=== PATIENT | female | born 1990 | race Caucasian/White ===

== ENCOUNTER 2018-06-10 01:24 | Observation (INO) ==
[2018-06-10] MEDS ORDERED: Sod Chloride 0.9% Inj 1,000 ML IV.SIG ONE (02:12)
[2018-06-10 03:05] LABS: Baso % (Auto) 0.4 % (0.0-2.0); Eos # (Auto) 0.3 th/mm3 (0.0-0.4); Eos % (Auto) 3.9 % (0.0-4.0); Hematocrit 35.7 % (35.0-46.0); Hemoglobin 11.6 gm/dL (11.6-15.3); Lymph # (Auto) 1.8 th/mm3 (1.0-4.8); Lymph % (Auto) 21.2 % (9.0-44.0); Mean Corpuscular HGB Conc 32.4 % (32.0-36.0); Mean Corpuscular Hemoglobin 25.8 pg (27.0-34.0); Mean Corpuscular Volume 79.4 fL (80.0-100.0); Mean Platelet Volume 7.9 fL (7.0-11.0); Mono # (Auto) 0.4 th/mm3 (0.0-0.9); Mono % (Auto) 4.5 % (0.0-8.0); Neut # (Auto) 5.9 th/mm3 (1.8-7.7); Platelet Count 197 th/mm3 (150-450); Red Blood Count 4.49 mil/mm3 (4.00-5.30); Red Cell Distribution Width 13.9 % (11.6-17.2); White Blood Count 8.4 th/mm3 (4.0-11.0)
[2018-06-10 03:13] LABS: Chloride 107 meq/L (98-107); Potassium 3.9 meq/L (3.5-5.1); Sodium 142 meq/L (136-145)
[2018-06-10 03:16] LABS: Albumin 3.2 g/dL (3.4-5.0); Anion Gap 10 meq/L (5-15); Calcium 8.5 mg/dL (8.5-10.1); Carbon Dioxide 25.4 meq/L (21.0-32.0); Glucose,Random 104 mg/dL (74-106); Lipase 248 U/L (73-393)
[2018-06-10 03:17] LABS: Blood Urea Nitrogen 15 mg/dL (7-18)
[2018-06-10 03:19] LABS: Alanine Aminotransferase 47 U/L (10-53); Aspartate Aminotransferase 22 U/L (15-37); Glomerular Filtration Rate 75 mL/min (>89)
[2018-06-10 03:21] LABS: Total Protein 6.7 g/dL (6.4-8.2)
--- NOTE | 2018-06-10 03:21 | ED ---
HPI General Chief Complaint: Abdominal Pain Stated Complaint: abd pain Time Seen by Provider: 06/10/18 03:17 Source: patient Mode of arrival: ambulatory Limitations: no limitations History of Present Illness HPI narrative: 27-year-old female 4 weeks with epigastric and right upper quadrant pain associated with nausea. This is her third episode in the past few weeks. Patient denies precipitating events such as fatty meal. No nausea no vomiting no fever or chills. Patient is formula feeding not breast- feeding her . Patient has not been evaluated for her abdominal pain. No prior history of gallbladder disease gallstones peptic ulcer disease gastritis or pancreatitis. Patient patient reports pain radiates into her back and is worsened by resting supine. Patient is unable to identify exacerbating or alleviating factors otherwise but has taken ibuprofen with minimal relief. Patient denies any chronic medical conditions. Patient is sexually active. MD complaint: Reports abdominal pain Onset (ago): day(s) Pain Consistency: intermittent and colicky Location: Reports RUQ Severity: moderate Quality: Reports cramping, aching and fullness Radiation: Reports RUQ, epigastric and back Migration to: Reports RUQ and epigastric Relieving factors: nothing Exacerbating factors: nothing Associated symptoms: Reports denies other symptoms Treatments prior to arrival: Reports NSAIDs Related Data Hx Last Menstrual Period: about 11 months ago Patient : No Home Medications Medication Instructions Recorded Confirmed No Known Home Medications 06/10/18 06/10/18 Allergies Allergy/AdvReac Type Severity Reaction Status Date / Time No Known Allergies Allergy Verified 06/10/18 03:07 Review of Systems ROS: all other systems reviewed are negative PMFSH Social History Social History Substance History: No History of Abuse Second Hand Smoke Exposure: No Smoking Status: Current every day smoker Tobacco Type: Cigarettes How Often Do You Have a Drink Containing Alcohol: Never Recent Travel in [facility] within the Last 8 Weeks: No Recent Out of Country Travel within the Last 8 Weeks: No Immunization History Tetanus Immunization: <5 Years Exam Narrative Exam Narrative: GENERAL: Well-nourished, well-developed patient. SKIN: Focused skin assessment warm/dry. HEAD: Normocephalic. EYES: No scleral icterus. No injection or drainage. NECK: Supple, trachea midline. No JVD or lymphadenopathy. CARDIOVASCULAR: Regular rate and rhythm without murmurs, gallops, or rubs. RESPIRATORY: Breath sounds equal bilaterally. No accessory muscle use. GASTROINTESTINAL: Abdomen soft, reproducible right upper quadrant epigastric tenderness to palpation with voluntary guarding no rebound positive clinical Hudson sign, nondistended. MUSCULOSKELETAL: No cyanosis, or edema. BACK: Nontender without obvious deformity. No CVA tenderness. Course Initial Documented Vital Signs Temperature 97.6 F 06/10/18 01:30 Pulse Rate 63 06/10/18 01:30 Respiratory Rate 16 06/10/18 01:30 Blood Pressure 122/81 06/10/18 01:30 Pulse Oximetry 99 06/10/18 01:30 Last Documented Vital Signs Temperature 97.6 F 06/10/18 01:30 Pulse Rate 63 06/10/18 01:30 Respiratory Rate 16 06/10/18 01:30 Blood Pressure 122/81 06/10/18 01:30 Pulse Oximetry 99 06/10/18 01:30 Medical Decision Making MDM Narrative Medical decision making narrative: 27-year-old female with right upper quadrant abdominal pain 4 weeks no prior history of gallbladder disease positive clinical Hudson sign Lab values wnl hcg negative; UA pending At 5:40 AM patient is approved stating that pain is diminishing aware CT abdomen pelvis is pending CT abdomen pelvis per reading radiologist is concerning for developing acute cholecystitis with distended gallbladder gallstone and scant pericholecystic fluid total white cell count is in normal range patient given first dose of IV antibiotics in the emergency department department patient will be kept n.p.o. additional IV fluids administered and call placed to medicine service anticipate will need general surgery consult. Medical Screen Exam Complete: Yes Emergency Medical Condition: Yes Differential Diagnosis Differential Diagnosis: Biliary colic, cholecystitis, pancreatitis, peptic ulcer disease, gastritis, esophageal spasm, UTI, ; also to consider pneumonia, PE Medical Records Medical records reviewed: Yes I reviewed the patient's medical records. Lab Data Lab results reviewed: Yes I reviewed the patient's lab results. Result diagrams: 06/10/18 03:01 06/10/18 03:01 POC Results POC Urine Results Negative Lab Results 06/10/18 06/10/18 06/10/18 Range/Units 03:01 03:01 04:00 CBC w Diff Auto diff final WBC 8.4 (4.0-11.0) th/mm3 RBC 4.49 (4.00-5.30) mil/mm3 Hgb 11.6 (11.6-15.3) gm/dL Hct 35.7 (35.0-46.0) % MCV 79.4 L (80.0-100.0) fL MCH 25.8 L (27.0-34.0) pg MCHC 32.4 (32.0-36.0) % RDW 13.9 (11.6-17.2) % Plt Count 197 (150-450) th/mm3 MPV 7.9 (7.0-11.0) fL Neut % (Auto) 70.0 (16.0-70.0) % Lymph % (Auto) 21.2 (9.0-44.0) % [place] % (Auto) 4.5 (0.0-8.0) % Eos % (Auto) 3.9 (0.0-4.0) % Baso % (Auto) 0.4 (0.0-2.0) % Neut # (Auto) 5.9 (1.8-7.7) th/mm3 Lymph # (Auto) 1.8 (1.0-4.8) th/mm3 [place] # (Auto) 0.4 (0.0-0.9) th/mm3 Eos # (Auto) 0.3 (0.0-0.4) th/mm3 Baso # (Auto) 0.0 (0.0-0.2) th/mm3 WBC Differential . Differential Comment . Sodium 142 (136-145) meq/L Potassium 3.9 (3.5-5.1) meq/L Chloride 107 (98-107) meq/L Carbon Dioxide 25.4 (21.0-32.0) meq/L Anion Gap 10 (5-15) meq/L BUN 15 (7-18) mg/dL Creatinine 0.91 (0.50-1.00) mg/dL Estimated GFR 75 L (>89) mL/min Random Glucose 104 (74-106) mg/dL Calcium 8.5 (8.5-10.1) mg/dL Total Bilirubin 0.2 (0.2-1.0) mg/dL AST 22 (15-37) U/L ALT 47 (10-53) U/L Alkaline Phosphatase 101 (45-117) U/L Total Protein 6.7 (6.4-8.2) g/dL Albumin 3.2 L (3.4-5.0) g/dL Lipase 248 (73-393) U/L Urine Color Yellow (Yellw/Straw) Urine Clarity Clear (Clear) Urine pH 6.0 (5.0-8.5) Ur Specific [place] 1.025 (1.002-1.035) Urine Protein Negative (Neg-Trace) mg/dL Urine Glucose (UA) Negative (Negative) mg/dL Urine Ketones Negative (Negative) mg/dL Urine Occult Blood Negative (Negative) Urine Nitrate Negative (Negative) Urine Bilirubin Negative (Negative) Urine Urobilinogen 0.2 (Less than 2) mg/dL Ur Leukocyte Esterase Negative (Negative) Urine RBC 0-3 (0-3) /hpf Urine WBC 0-5 (0-5) /hpf Ur Squamous Epith Cells 6-10 H (0-5) /hpf Urine Bacteria Few H (None) /hpf Micro UA Comment Culture not ind Ur Microscopic Review Microscopic reviewed Urine Culture Comments Culture not ind Imaging Data Radiologist's impression: Abdomen/Pelvis CT 06/10/18 04:15 CONCLUSION: 1. Moderate gallbladder distention, cholelithiasis and trace pericholecystic fluid. Cannot exclude developing acute cholecystitis in the appropriate clinical setting. 2. Normal appendix. Discharge Plan Discharge Disposition Patient Disposition: 30 Still Patient Discharge Condition Condition: Stable Discharge Details Diagnosis: Abdominal pain, Cholecystitis Physicians Team ED Provider: Tri Buck Primary Care Provider: Primary Care Radha Guardado Attending Provider: Jesika Peter Status ED Status: Admitted Observation Patient
[2018-06-10 03:22] LABS: Alkaline Phosphatase 101 U/L (45-117)
[2018-06-10] MEDS ORDERED: Ketorolac Inj 30 MG/ML (IVP) Vial IV.PUSH ONE ×3 (04:03→13:32)
[2018-06-10 04:05] LABS: Bilirubin,Urine Negative (Negative); Clarity,Urine Clear (Clear); Color,Urine Yellow (Yellw/Straw); Glucose,Urine (UA) Negative (Negative); Leukocyte Esterase,Urine Negative (Negative); Nitrite,Urine Negative (Negative); Specific Gravity,Urine 1.025 (1.002-1.035); Urobilinogen,Urine 0.2 mg/dL (Less than 2)
[2018-06-10 04:09] LABS: Bacteria,Urine Few /hpf; RBC,Urine 0-3 /hpf (0-3); WBC,Urine 0-5 /hpf (0-5)
--- NOTE | 2018-06-10 05:41 | CT ---
EXAM DATE: 06/10/2018 4:26 AM EDT AGE/SEX: 27 years / Female INDICATIONS: bilateral epigastric pain post . CLINICAL DATA: This is the patient's initial encounter. Patient reports that signs and symptoms have been present for 3 days and indicates a pain score of 8/10. MEDICAL/SURGICAL HISTORY: None. None. ORAL CONTRAST: No oral contrast ingested. RADIATION DOSE: 14.26 CTDI (mGy) COMPARISON: No prior exams available for comparison. TECHNIQUE: Multiple contiguous axial images were obtained through the abdomen and pelvis following b olus infusion of 100 ml Omnipaque 350 (iohexol) nonionic water-soluble contrast as a single exam do se. No oral contrast ingested. Using automated exposure control and adjustment of the mA and/or kV a ccording to patient size, radiation dose was kept as low as reasonably achievable to obtain optimal d iagnostic quality images. DICOM format image data is available electronically for review and compari son. FINDINGS: LOWER LUNGS: The visualized lower lungs are clear. LIVER: The liver has a homogeneous density without space-occupying lesion. There is no dilation of t he biliary tree. Gallbladder is moderately distended with small gallstone near the fundus and trace p ericholecystic fluid. SPLEEN: Homogeneous density without enlargement. PANCREAS: Unremarkable without mass or calcification. KIDNEYS: Kidneys demonstrate symmetrical enhancement and are symmetrical in size without evidence fo r radiopaque renal calculi or hydronephrosis. ADRENAL GLANDS: Unremarkable. AORTA: Joyce-aneurysmal. BOWEL/MESENTERY: The bowel loops are grossly unremarkable. The cecum and sigmoid colon have a iva l configuration. Bowel loops are normal in caliber. No free fluid or drainable fluid collections. No free air. Normal appendix. ABDOMINAL WALL: Intact. RETROPERITONEUM: No evidence of adenopathy in the retrocrural, para-aortic, or deep pelvic regions. BLADDER: Contours are smooth. REPRODUCTIVE: Prominent endometrium. BONY STRUCTURES: Unremarkable. CONCLUSION: 1. Moderate gallbladder distention, cholelithiasis and trace pericholecystic fluid. Cannot exclude d eveloping acute cholecystitis in the appropriate clinical setting. 2. Normal appendix. Electronically signed by: Luis Goldberg MD 06/10/2018 5:40 AM EDT
[2018-06-10] MEDS ORDERED: Piperacil/Tazo 3.375 GM Premix 50 ML IV.SIG ONE (05:42)
[2018-06-10] MEDS ORDERED: Acetaminophen 325 MG Tablet PO PRN (05:54)
[2018-06-10] MEDS ORDERED: Bisacodyl 10 MG Supp RECTAL PRN (05:54)
[2018-06-10] MEDS ORDERED: Morphine Sulfate Inj 2 MG/ML Vial IV.PUSH PRN (05:59)
[2018-06-10] MEDS ORDERED: KCL 20 mEq/D5W/NaCl 0.9% Inj 1,000 ML IV.CONT SCH (06:00)
--- NOTE | 2018-06-10 07:37 | P.CONGS ---
[facility] - History History Provided By: Patient - Tobacco History Second Hand Smoke Exposure: Yes Tobacco Use In Past 30 Days: Yes Smoking Status: Current every day smoker Tobacco Type: Cigarettes - Alcohol History How Often Do You Have a Drink Containing Alcohol: Monthly or less - Substance Use History Substance History: No History of Abuse - Travel History Recent Travel in the [place] Within the Last 8 Weeks: No Recent Travel Out of the Country Within the Last 8 Weeks: No - Immunization History Tetanus Immunization: <5 Years Medications and Allergies Active Medications: Active Medications Acetaminophen (Tylenol) 650 mg PO Q4H PRN PRN Reason: Temp > 100.4 Bisacodyl (Dulcolax Supp) 10 mg RECTAL DAILY PRN PRN Reason: SEVERE CONSITIPATION Potassium Chloride/Dextrose/Sod Cl (D5w/Ns + Kcl 20 Meq Inj) 1,000 mls @ 100 mls/hr IV.CONT .Q10H IZAIAH Sodium Chloride (Ns Inj) 1,000 mls @ 100 mls/hr IV.CONT .Q10H IZAIAH Piperacillin/Tazobactam/Dextrose (Zosyn 3.375 Gm Premix) 50 mls @ 100 mls/hr IV.SIG Q6H IZAIAH Morphine Sulfate (Morphine Inj) 2 mg IV.PUSH Q3H PRN PRN Reason: pain > 4 Ondansetron HCl (Zofran Inj) 4 mg IV.PUSH Q6H PRN PRN Reason: NAUSEA OR VOMITING Sennosides (Senokot) 17.2 mg PO Q12H PRN PRN Reason: Moderate Constipation Sodium Chloride (Ns Flush) 2 ml IV.FLUSH PRN PRN PRN Reason: FLUSH AFTER USING IV ACCESS Allergies Allergy/AdvReac Type Severity Reaction Status Date / Time No Known Allergies Allergy Verified 06/10/18 03:07 Home Medications Medication Instructions Recorded Confirmed Type No Known Home Medications 06/10/18 06/10/18 History Exam Vital signs: Vital Signs 06/10/18 01:30 06/10/18 06:41 Temperature 97.6 F Pulse Rate 63 61 Respiratory Rate 16 18 Blood Pressure 122/81 118/71 Pulse Oximetry 99 99 Intake & Output 06/09/18 06/10/18 06/10/18 18:59 06:59 18:59 Intake Total 1000 / 1000 50 / 50 Balance 1000 / 1000 50 / 50 Weight 86.7 kg Intake: IV 1000 / 1000 50 / 50 Zosyn 3.375 GM Premix 50 ML @ 50 / 50 100 mls/hr IV.SIG ONCE ONE Rx#: [id number] NS Inj 1,000 ML @ Wide Open IV. 1000 / 1000 SIG BOLUS ONE Rx#:[id number] Other: Date of Last Bowel Movement 06/09/18 Results - Labs 06/10/18 03:01 06/10/18 03:01 Laboratory Results - last 24 hr 06/10/18 06/10/18 06/10/18 03:01 03:01 04:00 CBC w Diff Auto diff final WBC 8.4 RBC 4.49 Hgb 11.6 Hct 35.7 MCV 79.4 L MCH 25.8 L MCHC 32.4 RDW 13.9 Plt Count 197 MPV 7.9 Neut % (Auto) 70.0 Lymph % (Auto) 21.2 [place] % (Auto) 4.5 Eos % (Auto) 3.9 Baso % (Auto) 0.4 Neut # (Auto) 5.9 Lymph # (Auto) 1.8 [place] # (Auto) 0.4 Eos # (Auto) 0.3 Baso # (Auto) 0.0 WBC Differential . Differential Comment . Sodium 142 Potassium 3.9 Chloride 107 Carbon Dioxide 25.4 Anion Gap 10 BUN 15 Creatinine 0.91 Estimated GFR 75 L Random Glucose 104 Calcium 8.5 Total Bilirubin 0.2 AST 22 ALT 47 Alkaline Phosphatase 101 Total Protein 6.7 Albumin 3.2 L Lipase 248 Urine Color Yellow Urine Clarity Clear Urine pH 6.0 Ur Specific [place] 1.025 Urine Protein Negative Urine Glucose (UA) Negative Urine Ketones Negative Urine Occult Blood Negative Urine Nitrate Negative Urine Bilirubin Negative Urine Urobilinogen 0.2 Ur Leukocyte Esterase Negative Urine RBC 0-3 Urine WBC 0-5 Ur Squamous Epith Cells 6-10 H Urine Bacteria Few H Micro UA Comment Culture not ind Ur Microscopic Review Microscopic reviewed Urine Culture Comments Culture not ind - Imaging Imaging: ITS Impressions Abdomen/Pelvis CT 06/10/18 04:15 CONCLUSION: 1. Moderate gallbladder distention, cholelithiasis and trace pericholecystic fluid. Cannot exclude developing acute cholecystitis in the appropriate clinical setting. 2. Normal appendix.
--- NOTE | 2018-06-10 09:29 | P.CONGS ---
[facility] Gen Surgery Consult Note Consult date: 06/10/18 Reason for consult: abdominal pain Requesting physician: Courtney Bocanegra Narrative: This is a 27 year old female who is 4 weeks who presented to the ED with complaints of acute onset of abdominal pain yesterday. She reports she had a similar episode of abdominal pain about 2 weeks ago but subsided on its own. The patient reports no associated nausea or vomiting. She is not . A CT abdomen/pelvis was obtained which shows a moderately distended gallbladder, cholelithiasis and trace pericholecystic fluid. Her WBC is normal. Her liver enzymes are normal. A General Surgery consultation has been requested for evaluation of laparoscopic cholecystectomy. Review of Systems All other systems reviewed negative except as stated in [facility] - History History Provided By: Patient - Medical History Medical History: Medical History (Last Reviewed 06/15/18 @ 10:45 by Jose Lynne MD) No significant past medical history No significant past surgical history - Family History Family History: Family History (Last Updated 06/15/18 @ 10:44 by Jose Lynne MD) Father Osteoarthritis - Social History I have reviewed the patient's Social History: Yes - Tobacco History Second Hand Smoke Exposure: Yes Tobacco Use In Past 30 Days: Yes Smoking Status: Current every day smoker Tobacco Type: Cigarettes - Alcohol History How Often Do You Have a Drink Containing Alcohol: Monthly or less - Substance Use History Substance History: No History of Abuse - Travel History Recent Travel in the [place] Within the Last 8 Weeks: No Recent Travel Out of the Country Within the Last 8 Weeks: No - Immunization History Tetanus Immunization: <5 Years Medications and Allergies Allergies Allergy/AdvReac Type Severity Reaction Status Date / Time No Known Allergies Allergy Verified 06/10/18 03:07 Active Medications: Active Medications Acetaminophen (Tylenol) 650 mg PO Q4H PRN PRN Reason: Temp > 100.4 Bisacodyl (Dulcolax Supp) 10 mg RECTAL DAILY PRN PRN Reason: SEVERE CONSITIPATION Potassium Chloride/Dextrose/Sod Cl (D5w/Ns + Kcl 20 Meq Inj) 1,000 mls @ 100 mls/hr IV.CONT .Q10H IZAIAH Last Admin: 06/10/18 08:46 Dose: 100 mls/hr Sodium Chloride (Ns Inj) 1,000 mls @ 100 mls/hr IV.CONT .Q10H IZAIAH Piperacillin/Tazobactam/Dextrose (Zosyn 3.375 Gm Premix) 50 mls @ 100 mls/hr IV.SIG Q6H IZAIAH Morphine Sulfate (Morphine Inj) 2 mg IV.PUSH Q3H PRN PRN Reason: pain > 4 Ondansetron HCl (Zofran Inj) 4 mg IV.PUSH Q6H PRN PRN Reason: NAUSEA OR VOMITING Sennosides (Senokot) 17.2 mg PO Q12H PRN PRN Reason: Moderate Constipation Sodium Chloride (Ns Flush) 2 ml IV.FLUSH PRN PRN PRN Reason: FLUSH AFTER USING IV ACCESS Exam Vital signs: Vital Signs 06/10/18 01:30 06/10/18 06:41 Temperature 97.6 F Pulse Rate 63 61 Respiratory Rate 16 18 Blood Pressure 122/81 118/71 Pulse Oximetry 99 99 Intake & Output 06/09/18 06/10/18 06/10/18 18:59 06:59 18:59 Intake Total 1000 / 1000 50 / 50 Balance 1000 / 1000 50 / 50 Weight 86.7 kg Intake: IV 1000 / 1000 50 / 50 Zosyn 3.375 GM Premix 50 ML @ 50 / 50 100 mls/hr IV.SIG ONCE ONE Rx#: [id number] NS Inj 1,000 ML @ Wide Open IV. 1000 / 1000 SIG BOLUS ONE Rx#:[id number] Other: Date of Last Bowel Movement 06/09/18 Narrative: GENERAL: Pleasant 27 year old female resting in bed in no acute distress. SKIN: Warm and dry. HEAD: Atraumatic. Normocephalic. EYES: Pupils equal and round. No scleral icterus. No injection or drainage. ENT: No nasal bleeding or discharge. Mucous membranes pink and moist. NECK: Trachea midline. CARDIOVASCULAR: Regular rate and rhythm. RESPIRATORY: No accessory muscle use. Clear to auscultation. Breath sounds equal bilaterally. GASTROINTESTINAL: Abdomen soft, nondistended. RUQ tenderness with palpation. MUSCULOSKELETAL: Extremities without clubbing, cyanosis, or edema. No obvious deformities. NEUROLOGICAL: Awake and alert. No obvious cranial nerve deficits. Motor grossly within normal limits. Five out of 5 muscle strength in the arms and legs. Normal speech. PSYCHIATRIC: Appropriate mood and affect; insight and judgment normal. - Constitutional no acute distress Results - Labs 06/11/18 06:20 06/11/18 06:20 Laboratory Results CBC w Diff Auto diff final 06/10/18 03:01 WBC 8.4 th/mm3 (4.0-11.0) 06/10/18 03:01 RBC 4.49 mil/mm3 (4.00-5.30) 06/10/18 03:01 Hgb 11.6 gm/dL (11.6-15.3) 06/10/18 03:01 Hct 35.7 % (35.0-46.0) 06/10/18 03:01 MCV 79.4 fL (80.0-100.0) L 06/10/18 03:01 MCH 25.8 pg (27.0-34.0) L 06/10/18 03:01 MCHC 32.4 % (32.0-36.0) 06/10/18 03:01 RDW 13.9 % (11.6-17.2) 06/10/18 03:01 Plt Count 197 th/mm3 (150-450) 06/10/18 03:01 MPV 7.9 fL (7.0-11.0) 06/10/18 03:01 Neut % (Auto) 70.0 % (16.0-70.0) 06/10/18 03:01 Lymph % (Auto) 21.2 % (9.0-44.0) 06/10/18 03:01 [place] % (Auto) 4.5 % (0.0-8.0) 06/10/18 03:01 Eos % (Auto) 3.9 % (0.0-4.0) 06/10/18 03:01 Baso % (Auto) 0.4 % (0.0-2.0) 06/10/18 03:01 Neut # (Auto) 5.9 th/mm3 (1.8-7.7) 06/10/18 03:01 Lymph # (Auto) 1.8 th/mm3 (1.0-4.8) 06/10/18 03:01 [place] # (Auto) 0.4 th/mm3 (0.0-0.9) 06/10/18 03:01 Eos # (Auto) 0.3 th/mm3 (0.0-0.4) 06/10/18 03:01 Baso # (Auto) 0.0 th/mm3 (0.0-0.2) 06/10/18 03:01 WBC Differential . 06/10/18 03:01 Differential Comment . 06/10/18 03:01 Sodium 142 meq/L (136-145) 06/10/18 03:01 Potassium 3.9 meq/L (3.5-5.1) 06/10/18 03:01 Chloride 107 meq/L (98-107) 06/10/18 03:01 Carbon Dioxide 25.4 meq/L (21.0-32.0) 06/10/18 03:01 Anion Gap 10 meq/L (5-15) 06/10/18 03:01 BUN 15 mg/dL (7-18) 06/10/18 03:01 Creatinine 0.91 mg/dL (0.50-1.00) 06/10/18 03:01 Estimated GFR 75 mL/min (>89) L 06/10/18 03:01 Random Glucose 104 mg/dL (74-106) 06/10/18 03:01 Calcium 8.5 mg/dL (8.5-10.1) 06/10/18 03:01 Total Bilirubin 0.2 mg/dL (0.2-1.0) 06/10/18 03:01 AST 22 U/L (15-37) 06/10/18 03:01 ALT 47 U/L (10-53) 06/10/18 03:01 Alkaline Phosphatase 101 U/L (45-117) 06/10/18 03:01 Total Protein 6.7 g/dL (6.4-8.2) 06/10/18 03:01 Albumin 3.2 g/dL (3.4-5.0) L 06/10/18 03:01 Lipase 248 U/L (73-393) 06/10/18 03:01 Urine Color Yellow (Yellw/Straw) 06/10/18 04:00 Urine Clarity Clear (Clear) 06/10/18 04:00 Urine pH 6.0 (5.0-8.5) 06/10/18 04:00 Ur Specific [place] 1.025 (1.002-1.035) 06/10/18 04:00 Urine Protein Negative mg/dL (Neg-Trace) 06/10/18 04:00 Urine Glucose (UA) Negative mg/dL (Negative) 06/10/18 04:00 Urine Ketones Negative mg/dL (Negative) 06/10/18 04:00 Urine Occult Blood Negative (Negative) 06/10/18 04:00 Urine Nitrate Negative (Negative) 06/10/18 04:00 Urine Bilirubin Negative (Negative) 06/10/18 04:00 Urine Urobilinogen 0.2 mg/dL (Less than 2) 06/10/18 04:00 Ur Leukocyte Esterase Negative (Negative) 06/10/18 04:00 Urine RBC 0-3 /hpf (0-3) 06/10/18 04:00 Urine WBC 0-5 /hpf (0-5) 06/10/18 04:00 Ur Squamous Epith Cells 6-10 /hpf (0-5) H 06/10/18 04:00 Urine Bacteria Few /hpf (None) H 06/10/18 04:00 Micro UA Comment Culture not ind 06/10/18 04:00 Ur Microscopic Review Microscopic reviewed 06/10/18 04:00 Urine Culture Comments Culture not ind 06/10/18 04:00 Impressions Abdomen/Pelvis CT 06/10/18 04:15 CONCLUSION: 1. Moderate gallbladder distention, cholelithiasis and trace pericholecystic fluid. Cannot exclude developing acute cholecystitis in the appropriate clinical setting. 2. Normal appendix. - Imaging Imaging: ITS Impressions Abdomen/Pelvis CT 06/10/18 04:15 CONCLUSION: 1. Moderate gallbladder distention, cholelithiasis and trace pericholecystic fluid. Cannot exclude developing acute cholecystitis in the appropriate clinical setting. 2. Normal appendix. CT scan - abdomen: image reviewed Assessment and Plan - Assessment (1) Cholecystitis Code(s): K81.9 - Cholecystitis, unspecified Status: Acute Plan: 27 year old female with recurrent RUQ tenderness -Plan for laparoscopic cholecystectomy today with Dr. Lynne -NPO -[facility] -Zosyn preop -Obtain consents -Procedure explained in detail including risks and benefits -All questions answered -Thank you for this consult; We will continue to follow - Plan Discussed Condition With: Dr. Maged Ferreira - Attending Attestation patient seen at bedside, I agree with above acute right upper quadrant pain several episodes CT think gallbladder wall, acute cholecystitis with stones plan for OR for lap nickie discussed procedure with patient The exam, history, and the medical decision-making described in the above note were completed with the assistance of the mid-level provider. I reviewed and agree with the findings presented. I attest that I had a [id number] encounter with the patient on the same day, and personally performed and documented my assessment and findings in the medical record.
[2018-06-10] MEDS: Sod Chloride 0.9% Inj 1,000 ML IV.CONT SCH ×2 (11:34→17:55)
[2018-06-10] MEDS ORDERED: fentaNYL Citrate Inj 250 MCG/5 ML Ampul ONE (12:14)
[2018-06-10] MEDS ORDERED: Metoprolol Tartrate 25 MG Tablet PO ONE (12:55)
[2018-06-10] MEDS ORDERED: Chlorhexidine Gluconate 2% 1 Pack (2 Cloths) TOPICAL ONE (12:55)
[2018-06-10] MEDS ORDERED: Sodium Chlor 0.9% Inj 500 ML IV.SIG SCH (13:00)
[2018-06-10] MEDS ORDERED: Bupivacaine/Epinephrine PF Inj 0.5% 30 ML Vial ONE (13:04)
[2018-06-10] MEDS: Piperacil/Tazo 3.375 GM Premix 50 ML IV.SIG SCH ×2 (13:10→17:56)
--- NOTE | 2018-06-10 13:15 | P.OP ---
- Preoperative Diagnosis (1) Cholecystitis - Postoperative Diagnosis (1) Cholecystitis Date of procedure: 06/10/18 Procedure: lap nickie Anesthesia: GETA Surgeon: Jose Lynne MD Estimated blood loss (mL): 5 Pathology: other (gallbladder) Operation and Findings: distended gallbladder
[2018-06-10] MEDS ORDERED: Neostigmine Inj 5 MG/5 ML Syringe IV.PUSH ONE (13:32)
[2018-06-10] MEDS ORDERED: Lidocaine PF 1% Inj 5 ML Syringe INFILTRATN ONE (13:32)
[2018-06-10] MEDS ORDERED: Morphine Inj 4 MG/ML Vial ONE (14:56)
--- NOTE | 2018-06-10 15:06 | MP ---
cc: Jose Lynne MD DATE OF OPERATION: 06/10/2018 DATE OF PROCEDURE: 06/10/2018. PREOPERATIVE DIAGNOSIS: Acute cholecystitis with cholelithiasis. POSTOPERATIVE DIAGNOSIS: Acute cholecystitis with cholelithiasis. PROCEDURE PERFORMED: Laparoscopic cholecystectomy. SURGEON: Dr. Jose Lynne. DOUBLING MACHINE OPERATOR: None. ANESTHESIA: GETA. FLUIDS: See anesthesia sheet. ESTIMATED BLOOD LOSS: 5 mL DRAINS: None. COMPLICATIONS: None. WOUND CLASSIFICATION: Clean/contaminated. FINDINGS: Inflamed acute gallbladder, minimal gallbladder stones; good hemostasis. SPECIMENS: Gallbladder. INDICATIONS: Patient is a 27-year-old female who presents recent with acute onset of abdominal pain. The patient states the pain is right upper quadrant; continuing to get worse and several episodes. She had further workup including CT scan with findings of gallstones and thickened gallbladder wall with pericholecystic fluid. Therefore, decision was made for laparoscopic cholecystectomy. DETAILS OF PROCEDURE: The patient was taken to the operating suite, placed in supine position. She was prepped and draped in usual sterile fashion after induction of general endotracheal anesthesia. Brief timeout done stating correct patient, procedure, surgical site. We were all in agreement with this. Attention first directed to the umbilicus where a stab-chely incision was done after injection of local anesthetic. A 5 mm Optiview was done, placed supraumbilically and entered the abdomen safely. A cursory inspection with no evidence of injury. Three other ports were placed, including one 12 mm epigastric port, followed by two 5 mm right subcostal ports. The patient was placed in reverse Trendelenburg, airplane to the left. The gallbladder fundus was grasped and retracted cephalad. Dissection of the cystic duct and cystic artery were done. This was done with the [place] and the electro Bovie cautery hook. A small little bleeder was clipped and 2 clips placed proximal on the cystic artery and 1 distal and then 2 placed proximal on the cystic duct and 1 distal. The gallbladder was taken off the gallbladder fossa with the hook electro Bovie cautery. Gallbladder was placed in the EndoCatch bag and removed from the abdomen. Hemostasis was obtained. The Ray-Gisele was used to assist in hemostasis and the pneumoperitoneum was removed. The ports were removed. Epigastric port fascia was closed with 0-Vicryl ur 6 Monocryl 4-0 was used at all skin incisions and subcuticular incision. Local anesthetic done to all incision sites. The patient tolerated the procedure well. There were intraoperative complications. All lap and instrument counts were correct at the end of the procedure. The patient was extubated and taken to the PACU. MD ZAIN Garcia/shannan/kathy , 02:17 PM , 02:28 PM RAOUL
[2018-06-10] MEDS ORDERED: HYDROmorphone PF Inj 0.5 MG/0.5 ML Syringe IV.PUSH PRN (16:10)
[2018-06-10] MEDS ORDERED: HYDROmorphone PF Inj 2 MG/ML Vial IV.PUSH ONE (16:15)
--- NOTE | 2018-06-10 17:30 | P.HPIM ---
History of Present Illness Primary Care Physician: No Primary Care Physician History of Present Illness: Ms. Ferreira is a 27-year-old female. She has no past medical history. She was admitted secondary to right upper quadrant pain. This was found to be related to cholecystitis. She had cholecystectomy performed this morning. She is doing well postop. No other complaints at this time. She is lethargic postop. - Diagnosis (1) Abdominal pain (2) Cholecystitis Review of Systems Constitutional: No fevers, no chills no night sweats, no fatigue, no weakness Eyes: No eye pain, no blurry vision, no loss of vision ENT: No sore throat, no ear pain, no rhinorrhea Cardiovascular: No chest pain, no tachycardia, no palpitations, no shortness of breath, no syncope Respiratory: No wheezing, no cough, no shortness of breath Gastrointestinal: abdominal pain, no black tarry stools, no bright red blood per rectum, no vomiting, no diarrhea Musculoskeletal: No joint pain, no muscle cramps, no stiffness Integumentary: No rash, no ulcers, no drainage Neurologic: No sensory loss, no loss of motor function, no dizziness Psychiatric: No behavioral changes, no hallucinations, no suicidal ideations PMFSH - History History Provided By: Patient - Medical History Medical History: Medical History (Last Updated 06/10/18 @ 09:26 by NIDA Montes) No significant past medical history No significant past surgical history - Family History Family History: Family History (Last Updated 06/10/18 @ 17:28 by Severiano Diaz MD) Other Osteoarthritis - Tobacco History Second Hand Smoke Exposure: Yes Tobacco Use In Past 30 Days: Yes Smoking Status: Current every day smoker Tobacco Type: Cigarettes - Alcohol History How Often Do You Have a Drink Containing Alcohol: Monthly or less - Substance Use History Substance History: No History of Abuse - Travel History Recent Travel in the [place] Within the Last 8 Weeks: No Recent Travel Out of the Country Within the Last 8 Weeks: No - Immunization History Tetanus Immunization: <5 Years Medications and Allergies Active Medications: Active Medications Acetaminophen (Tylenol) 650 mg PO Q4H PRN PRN Reason: Temp > 100.4 Bisacodyl (Dulcolax Supp) 10 mg RECTAL DAILY PRN PRN Reason: SEVERE CONSITIPATION Hydromorphone HCl (Dilaudid Pf Inj) 0.5 mg IV.PUSH Q4H PRN PRN Reason: BREAKTHROUGH PAIN Sodium Chloride (Ns Inj) 1,000 mls @ 100 mls/hr IV.CONT .Q10H IZAIAH Last Admin: 06/10/18 11:34 Dose: 100 mls/hr Piperacillin/Tazobactam/Dextrose (Zosyn 3.375 Gm Premix) 50 mls @ 100 mls/hr IV.SIG Q6H IZAIAH Last Infusion: 06/10/18 16:01 Dose: Infused Sodium Chloride (Ns Inj) 500 mls @ 30 mls/hr IV.SIG .Q10H IZAIAH Lactated Ringer's (Lr 1000 Ml Inj) 1,000 mls @ 30 mls/hr IV.SIG .Q24H IZAIAH Stop: 06/11/18 12:59 Last Infusion: 06/10/18 14:25 Dose: 30 mls/hr Miscellaneous Information ([facility] [place] [facility]) 0 each OTHER UNSCH PRN PRN Reason: SEE LABEL COMMENTS Stop: 06/11/18 16:22 Ondansetron HCl (Zofran Inj) 4 mg IV.PUSH Q6H PRN PRN Reason: NAUSEA OR VOMITING Oxycodone/Acetaminophen (Percocet 10/325 Mg) 1 tab PO Q4H PRN PRN Reason: Pain 7 to 10 Oxycodone/Acetaminophen (Percocet 5/325 Mg) 1 tab PO Q4H PRN PRN Reason: Pain 3 to 6 Sennosides (Senokot) 17.2 mg PO Q12H PRN PRN Reason: Moderate Constipation Sodium Chloride (Ns Flush) 2 ml IV.FLUSH PRN PRN PRN Reason: FLUSH AFTER USING IV ACCESS Allergies Allergy/AdvReac Type Severity Reaction Status Date / Time No Known Allergies Allergy Verified 06/10/18 03:07 Home Medications Medication Instructions Recorded Confirmed Type No Known Home Medications 06/10/18 06/10/18 History Exam Vital signs: Vital Signs 06/10/18 01:30 06/10/18 06:41 06/10/18 08:00 Temperature 97.6 F 97.0 F L Pulse Rate 63 61 50 L Respiratory Rate 16 18 16 Blood Pressure 122/81 118/71 105/63 Pulse Oximetry 99 99 99 06/10/18 12:00 06/10/18 12:28 06/10/18 14:30 Temperature 97.0 F L 97.8 F 98.8 F Pulse Rate 55 L 56 L 78 Respiratory Rate 20 16 16 Blood Pressure 118/65 118/72 140/79 Pulse Oximetry 95 97 99 06/10/18 14:45 06/10/18 15:00 06/10/18 15:15 Temperature Pulse Rate 72 60 57 L Respiratory Rate 16 16 14 Blood Pressure 125/81 127/76 123/73 Pulse Oximetry 94 L 94 L 95 06/10/18 15:40 06/10/18 16:00 Temperature 98.2 F 98.5 F Pulse Rate 61 57 L Respiratory Rate 16 20 Blood Pressure 119/67 113/62 Pulse Oximetry 97 96 Intake & Output 06/09/18 06/10/18 06/10/18 18:59 06:59 18:59 Intake Total 1000 / 1000 2682 / 2682 Output Total 525 / 525 Balance 1000 / 1000 2157 / 2157 Weight 86.7 kg Intake: IV 1000 / 1000 1282 / 1282 D5W/NS + KCL 20 mEq Inj 1,000 282 / 282 ML @ 100 mls/hr IV.CONT .Q10H IZAIAH Rx#:[id number] LR 1000 mL Inj 1,000 ML @ 30 900 / 900 mls/hr IV.SIG .Q24H IZAIAH Rx#: [id number] Zosyn 3.375 GM Premix 50 ML @ 100 / 100 100 mls/hr IV.SIG Q6H IZAIAH Rx#: [id number] NS Inj 1,000 ML @ Wide Open IV. 1000 / 1000 SIG BOLUS ONE Rx#:[id number] Oral 200 / 200 Anesthesia Amount 900 / 900 Other 300 / 300 Output: Urine 500 / 500 Estimated Blood Loss 25 / 25 Other: Date of Last Bowel Movement 06/09/18 06/09/18 Narrative: GENERAL: NAD, A&Ox3 HEAD: Normocephalic. NECK: Supple, trachea midline. No lymphadenopathy. EYES: No scleral icterus. No injection or drainage. CARDIOVASCULAR: Regular rate and rhythm without murmurs, gallops, or rubs. RESPIRATORY: Breath sounds equal bilaterally. No accessory muscle use. GASTROINTESTINAL: Abdomen soft, tender abdomen postop, no guarding, nondistended. MUSCULOSKELETAL: No cyanosis, or edema. SKIN: Warm and dry. NEURO: No focal neurological deficits. Results - Labs CBC & Chem 7: 06/10/18 03:01 06/10/18 03:01 Labs: Short CBC 06/10/18 Range/Units 03:01 WBC 8.4 (4.0-11.0) th/mm3 Hgb 11.6 (11.6-15.3) gm/dL Hct 35.7 (35.0-46.0) % Plt Count 197 (150-450) th/mm3 BMP 06/10/18 03:01 Sodium 142 Potassium 3.9 Chloride 107 Carbon Dioxide 25.4 BUN 15 Creatinine 0.91 Calcium 8.5 Liver Function 06/10/18 Range/Units 03:01 Total Bilirubin 0.2 (0.2-1.0) mg/dL AST 22 (15-37) U/L ALT 47 (10-53) U/L Alkaline Phosphatase 101 (45-117) U/L Albumin 3.2 L (3.4-5.0) g/dL Urine 06/10/18 Range/Units 04:00 Urine Color Yellow (Yellw/Straw) Urine Clarity Clear (Clear) Urine pH 6.0 (5.0-8.5) Ur Specific [place] 1.025 (1.002-1.035) Urine Protein Negative (Neg-Trace) mg/dL Urine Glucose (UA) Negative (Negative) mg/dL - Imaging Impressions Abdomen/Pelvis CT 06/10/18 04:15 CONCLUSION: 1. Moderate gallbladder distention, cholelithiasis and trace pericholecystic fluid. Cannot exclude developing acute cholecystitis in the appropriate clinical setting. 2. Normal appendix. Caprini VTE Risk Assessment Caprini VTE Risk Assessment: No/Low Risk (score <= 1) Caprini Risk Assessment Model: Point Value = 1 Point Value = 2 Point Value = 3 Point Value = 5 Age 41-60 Minor surgery BMI > 25 kg/m2 Swollen legs Varicose veins or History of unexplained or recurrent spontaneous Oral contraceptives or hormone replacement Sepsis (< 1 month) Serious lung disease, including pneumonia (< 1 month) Abnormal pulmonary function Acute myocardial infarction Congestive heart failure (< 1 month) History of inflammatory bowel disease Medical patient at bed rest Age 61-74 Arthroscopic surgery Major open surgery (> 45 min) Laparoscopic surgery (> 45 min) Malignancy Confined to bed (> 72 hours) Immobilizing plaster cast Central venous access Age >= 75 History of VTE Family history of VTE Factor V Leiden Prothrombin [id number] Lupus anticoagulant Anticardiolipin antibodies Elevated serum homocysteine Heparin-induced thrombocytopenia Other congenital or acquired thrombophilia Stroke (< 1 month) Elective arthroplasty Hip, pelvis, or leg fracture Acute spinal cord injury (< 1 month) Prophylaxis Regimen: Total Risk Factor Score Risk Level Prophylaxis Regimen 0-1 Low Early ambulation 2 Moderate Order ONE of the following: *Sequential Compression Device (SCD) *Heparin 5000 units SQ BID 3-4 Higher Order ONE of the following medications: *Heparin 5000 units SQ TID *Enoxaparin/Lovenox 40 mg SQ daily (WT < 150 kg, CrCl > 30 mL/min) *Enoxaparin/Lovenox 30 mg SQ daily (WT < 150 kg, CrCl > 10-29 mL/min) *Enoxaparin/Lovenox 30 mg SQ BID (WT < 150 kg, CrCl > 30 mL/min) AND/OR *Sequential Compression Device (SCD) 5 or more Highest Order ONE of the following medications: *Heparin 5000 units SQ TID (Preferred with Epidurals) *Enoxaparin/Lovenox 40 mg SQ daily (WT < 150 kg, CrCl > 30 mL/min) *Enoxaparin/Lovenox 30 mg SQ daily (WT < 150 kg, CrCl > 10-29 mL/min) *Enoxaparin/Lovenox 30 mg SQ BID (WT < 150 kg, CrCl > 30 mL/min) AND *Sequential Compression Device (SCD) Assessment and Plan - Assessment (1) Abdominal pain Code(s): R10.9 - Unspecified abdominal pain Status: Acute (2) Cholecystitis Code(s): K81.9 - Cholecystitis, unspecified Status: Acute - Plan 27-year-old female admitted secondary to acute cholecystitis Acute cholecystitis Status post cholecystectomy Surgeons following Continue pain management Continue IV hydration Resume diet once patient is more alert and has bowel sounds Possible discharge tomorrow DVT prophylaxis SCDs (1) Abdominal pain Qualifiers: Abdominal location: epigastric Qualified Code(s): R10.13 - Epigastric pain
[2018-06-10] MEDS: oxyCODONE/Acetaminophen 10/325 Tablet PO PRN (20:31)
--- NOTE | 2018-06-10 20:42 | P.PN ---
Subjective Interval history: NOT SEEN Physical Exam Vital signs: Vital Signs 06/10/18 01:30 06/10/18 06:41 06/10/18 08:00 Temperature 97.6 F 97.0 F L Pulse Rate 63 61 50 L Respiratory Rate 16 18 16 Blood Pressure 122/81 118/71 105/63 Pulse Oximetry 99 99 99 06/10/18 12:00 06/10/18 12:28 06/10/18 14:30 Temperature 97.0 F L 97.8 F 98.8 F Pulse Rate 55 L 56 L 78 Respiratory Rate 20 16 16 Blood Pressure 118/65 118/72 140/79 Pulse Oximetry 95 97 99 06/10/18 14:45 06/10/18 15:00 06/10/18 15:15 Temperature Pulse Rate 72 60 57 L Respiratory Rate 16 16 14 Blood Pressure 125/81 127/76 123/73 Pulse Oximetry 94 L 94 L 95 06/10/18 15:40 06/10/18 16:00 Temperature 98.2 F 98.5 F Pulse Rate 61 57 L Respiratory Rate 16 20 Blood Pressure 119/67 113/62 Pulse Oximetry 97 96 Intake & Output 06/10/18 06/10/18 06/11/18 06:59 18:59 06:59 Intake Total 1000 / 1000 3282 / 3282 Output Total 525 / 525 Balance 1000 / 1000 2757 / 2757 Weight 86.7 kg Intake: IV 1000 / 1000 1882 / 1882 D5W/NS + KCL 20 mEq Inj 1,000 282 / 282 ML @ 100 mls/hr IV.CONT .Q10H IZAIAH Rx#:[id number] NS Inj 1,000 ML @ 100 mls/hr IV 550 / 550 .CONT .Q10H IZAIAH Rx#:[id number] LR 1000 mL Inj 1,000 ML @ 30 900 / 900 mls/hr IV.SIG .Q24H IZAIAH Rx#: [id number] Zosyn 3.375 GM Premix 50 ML @ 150 / 150 100 mls/hr IV.SIG Q6H IZAIAH Rx#: [id number] NS Inj 1,000 ML @ Wide Open IV. 1000 / 1000 SIG BOLUS ONE Rx#:[id number] Oral 200 / 200 Anesthesia Amount 900 / 900 Other 300 / 300 Output: Urine 500 / 500 Estimated Blood Loss 25 / 25 Other: Date of Last Bowel Movement 06/09/18 06/09/18 Narrative: GENERAL: NAD, A&Ox3 HEAD: Normocephalic. NECK: Supple, trachea midline. No lymphadenopathy. EYES: No scleral icterus. No injection or drainage. CARDIOVASCULAR: Regular rate and rhythm without murmurs, gallops, or rubs. RESPIRATORY: Breath sounds equal bilaterally. No accessory muscle use. GASTROINTESTINAL: Abdomen soft, tender abdomen postop, no guarding, nondistended. MUSCULOSKELETAL: No cyanosis, or edema. SKIN: Warm and dry. NEURO: No focal neurological deficits. Results - Labs CBC & Chem 7: 06/10/18 03:01 06/10/18 03:01 Laboratory Results - last 24 hr 06/10/18 06/10/18 06/10/18 03:01 03:01 04:00 CBC w Diff Auto diff final WBC 8.4 RBC 4.49 Hgb 11.6 Hct 35.7 MCV 79.4 L MCH 25.8 L MCHC 32.4 RDW 13.9 Plt Count 197 MPV 7.9 Neut % (Auto) 70.0 Lymph % (Auto) 21.2 [place] % (Auto) 4.5 Eos % (Auto) 3.9 Baso % (Auto) 0.4 Neut # (Auto) 5.9 Lymph # (Auto) 1.8 [place] # (Auto) 0.4 Eos # (Auto) 0.3 Baso # (Auto) 0.0 WBC Differential . Differential Comment . PT INR Sodium 142 Potassium 3.9 Chloride 107 Carbon Dioxide 25.4 Anion Gap 10 BUN 15 Creatinine 0.91 Estimated GFR 75 L Random Glucose 104 Calcium 8.5 Total Bilirubin 0.2 AST 22 ALT 47 Alkaline Phosphatase 101 Total Protein 6.7 Albumin 3.2 L Lipase 248 Urine Color Yellow Urine Clarity Clear Urine pH 6.0 Ur Specific [place] 1.025 Urine Protein Negative Urine Glucose (UA) Negative Urine Ketones Negative Urine Occult Blood Negative Urine Nitrate Negative Urine Bilirubin Negative Urine Urobilinogen 0.2 Ur Leukocyte Esterase Negative Urine RBC 0-3 Urine WBC 0-5 Ur Squamous Epith Cells 6-10 H Urine Bacteria Few H Micro UA Comment Culture not ind Ur Microscopic Review Microscopic reviewed Urine Culture Comments Culture not ind 06/10/18 09:17 CBC w Diff WBC RBC Hgb Hct MCV MCH MCHC RDW Plt Count MPV Neut % (Auto) Lymph % (Auto) [place] % (Auto) Eos % (Auto) Baso % (Auto) Neut # (Auto) Lymph # (Auto) [place] # (Auto) Eos # (Auto) Baso # (Auto) WBC Differential Differential Comment PT 10.0 INR 1.0 Sodium Potassium Chloride Carbon Dioxide Anion Gap BUN Creatinine Estimated GFR Random Glucose Calcium Total Bilirubin AST ALT Alkaline Phosphatase Total Protein Albumin Lipase Urine Color Urine Clarity Urine pH Ur Specific [place] Urine Protein Urine Glucose (UA) Urine Ketones Urine Occult Blood Urine Nitrate Urine Bilirubin Urine Urobilinogen Ur Leukocyte Esterase Urine RBC Urine WBC Ur Squamous Epith Cells Urine Bacteria Micro UA Comment Ur Microscopic Review Urine Culture Comments - Imaging Impressions Abdomen/Pelvis CT 06/10/18 04:15 CONCLUSION: 1. Moderate gallbladder distention, cholelithiasis and trace pericholecystic fluid. Cannot exclude developing acute cholecystitis in the appropriate clinical setting. 2. Normal appendix. - Procedures Lap nickie Assessment and Plan - Assessment (1) Abdominal pain Code(s): R10.9 - Unspecified abdominal pain Status: Acute (2) Cholecystitis Code(s): K81.9 - Cholecystitis, unspecified Status: Acute - Plan 27-year-old female admitted secondary to acute cholecystitis Acute cholecystitis Status post cholecystectomy Surgeons following Continue pain management Continue IV hydration Resume diet once patient is more alert and has bowel sounds Possible discharge tomorrow DVT prophylaxis SCDs (1) Abdominal pain Qualifiers: Abdominal location: epigastric Qualified Code(s): R10.13 - Epigastric pain
[2018-06-10] MEDS: HYDROmorphone PF Inj 2 MG/ML Vial IV.PUSH PRN (22:26)
[2018-06-11] MEDS: Piperacil/Tazo 3.375 GM Premix 50 ML IV.SIG SCH ×2 (00:23→05:22)
[2018-06-11] MEDS: oxyCODONE/Acetaminophen 10/325 Tablet PO PRN ×3 (00:45→09:41)
[2018-06-11] MEDS: HYDROmorphone PF Inj 2 MG/ML Vial IV.PUSH PRN (03:40)
[2018-06-11 06:50] LABS: Baso % (Auto) 0.1 % (0.0-2.0); Eos % (Auto) 0.1 % (0.0-4.0); Hematocrit 36.7 % (35.0-46.0); Hemoglobin 12.1 gm/dL (11.6-15.3); Lymph # (Auto) 0.8 th/mm3 (1.0-4.8); Lymph % (Auto) 6.7 % (9.0-44.0); Mean Corpuscular Hemoglobin 26.5 pg (27.0-34.0); Mean Corpuscular Volume 80.4 fL (80.0-100.0); Mean Platelet Volume 8.1 fL (7.0-11.0); Mono # (Auto) 0.3 th/mm3 (0.0-0.9); Mono % (Auto) 2.8 % (0.0-8.0); Neut # (Auto) 10.5 th/mm3 (1.8-7.7); Neut % (Auto) 90.3 % (16.0-70.0); Platelet Count 234 th/mm3 (150-450); Red Blood Count 4.56 mil/mm3 (4.00-5.30); Red Cell Distribution Width 13.7 % (11.6-17.2); White Blood Count 11.6 th/mm3 (4.0-11.0)
[2018-06-11 07:11] LABS: Chloride 106 meq/L (98-107); Sodium 141 meq/L (136-145)
[2018-06-11 07:17] LABS: Albumin 3.2 g/dL (3.4-5.0); Anion Gap 10 meq/L (5-15); Blood Urea Nitrogen 8 mg/dL (7-18); Calcium 8.2 mg/dL (8.5-10.1); Carbon Dioxide 25.2 meq/L (21.0-32.0); Glucose,Random 126 mg/dL (74-106)
[2018-06-11] MEDS: Sod Chloride 0.9% Inj 1,000 ML IV.CONT SCH (07:35)
[2018-06-11 07:38] LABS: Alanine Aminotransferase 182 U/L (10-53); Alkaline Phosphatase 147 U/L (45-117); Aspartate Aminotransferase 106 U/L (15-37); Glomerular Filtration Rate 76 mL/min (>89); Total Protein 6.7 g/dL (6.4-8.2)
[2018-06-11] MEDS ORDERED: HYDROmorphone PF Inj 2 MG/ML Vial IV.PUSH ONE (08:00)
--- NOTE | 2018-06-11 08:06 | P.PNGS ---
Subjective Interval history: Resting in bed Wants to make sure her Latuda is restarted Physical Exam Vital signs: Vital Signs 06/10/18 12:00 06/10/18 12:28 06/10/18 14:30 Temperature 97.0 F L 97.8 F 98.8 F Pulse Rate 55 L 56 L 78 Respiratory Rate 20 16 16 Blood Pressure 118/65 118/72 140/79 Pulse Oximetry 95 97 99 06/10/18 14:45 06/10/18 15:00 06/10/18 15:15 Temperature Pulse Rate 72 60 57 L Respiratory Rate 16 16 14 Blood Pressure 125/81 127/76 123/73 Pulse Oximetry 94 L 94 L 95 06/10/18 15:40 06/10/18 16:00 06/10/18 20:00 Temperature 98.2 F 98.5 F 96.1 F L Pulse Rate 61 57 L 56 L Respiratory Rate 16 20 16 Blood Pressure 119/67 113/62 120/66 Pulse Oximetry 97 96 98 06/11/18 00:00 Temperature 97.6 F Pulse Rate 53 L Respiratory Rate 16 Blood Pressure 118/71 Pulse Oximetry 96 Intake & Output 06/10/18 06/11/18 06/11/18 18:59 06:59 18:59 Intake Total 3282 / 3282 2049 50 / 50 Output Total 525 / 525 Balance 2757 / 2757 2049 50 / 50 Weight 86.7 kg Intake: IV 1882 / 1882 1050 / 1050 50 / 50 D5W/NS + KCL 20 mEq Inj 1,000 282 / 282 ML @ 100 mls/hr IV.CONT .Q10H IZAIAH Rx#:[id number] NS Inj 1,000 ML @ 100 mls/hr IV 550 / 550 1000 / 1000 .CONT .Q10H IZAIAH Rx#:[id number] LR 1000 mL Inj 1,000 ML @ 30 900 / 900 0 / 0 mls/hr IV.SIG .Q24H IZAIAH Rx#: [id number] Zosyn 3.375 GM Premix 50 ML @ 150 / 150 50 / 50 50 / 50 100 mls/hr IV.SIG Q6H IZAIAH Rx#: [id number] Oral 200 / 200 1000 / 1000 Anesthesia Amount 900 / 900 Other 300 / 300 Output: Urine 500 / 500 Estimated Blood Loss 25 / 25 Other: # Voids 3 Date of Last Bowel Movement 06/09/18 Narrative: Alert and awake Abd: soft; minimally tender; umbilical site with some bloody drainage Results - Labs 06/11/18 06:20 06/11/18 06:20 Laboratory Results - last 24 hr 06/10/18 06/11/18 06/11/18 09:17 06:20 06:20 CBC w Diff Auto diff final WBC 11.6 H RBC 4.56 Hgb 12.1 Hct 36.7 MCV 80.4 MCH 26.5 L MCHC 33.0 RDW 13.7 Plt Count 234 MPV 8.1 Neut % (Auto) 90.3 H Lymph % (Auto) 6.7 L [place] % (Auto) 2.8 Eos % (Auto) 0.1 Baso % (Auto) 0.1 Neut # (Auto) 10.5 H Lymph # (Auto) 0.8 L [place] # (Auto) 0.3 Eos # (Auto) 0.0 Baso # (Auto) 0.0 WBC Differential . Differential Comment . PT 10.0 INR 1.0 Sodium 141 Potassium 4.0 Chloride 106 Carbon Dioxide 25.2 Anion Gap 10 BUN 8 Creatinine 0.90 Estimated GFR 76 L Random Glucose 126 H Calcium 8.2 L Total Bilirubin 0.4 AST 106 H ALT 182 H Alkaline Phosphatase 147 H Total Protein 6.7 Albumin 3.2 L - Imaging Imaging: ITS Impressions Abdomen/Pelvis CT 06/10/18 04:15 CONCLUSION: 1. Moderate gallbladder distention, cholelithiasis and trace pericholecystic fluid. Cannot exclude developing acute cholecystitis in the appropriate clinical setting. 2. Normal appendix. Assessment and Plan - Assessment (1) Cholecystitis Code(s): K81.9 - Cholecystitis, unspecified Status: Acute Plan: 27 year old female with recurrent RUQ tenderness -POD1 lap nickie -Pain controlled -Regular diet -Restart home meds per [facility] team - clear for DC -Follow up SaturdayJune 23 at 1:10PM - Attending Attestation patient seen at bedside doing well post operatively pain better labs increase slightly will recheck prior to office visit d/c planning today The exam, history, and the medical decision-making described in the above note were completed with the assistance of the mid-level provider. I reviewed and agree with the findings presented. I attest that I had a [id number] encounter with the patient on the same day, and personally performed and documented my assessment and findings in the medical record.
[2018-06-11 08:36] VITALS: BP 131/69; PULSE 50; TEMP 96.2; O2SAT 99
--- NOTE | 2018-06-11 08:53 | P.PN ---
Physical Exam Vital signs: Vital Signs 06/10/18 12:00 06/10/18 12:28 06/10/18 14:30 Temperature 97.0 F L 97.8 F 98.8 F Pulse Rate 55 L 56 L 78 Respiratory Rate 20 16 16 Blood Pressure 118/65 118/72 140/79 Pulse Oximetry 95 97 99 06/10/18 14:45 06/10/18 15:00 06/10/18 15:15 Temperature Pulse Rate 72 60 57 L Respiratory Rate 16 16 14 Blood Pressure 125/81 127/76 123/73 Pulse Oximetry 94 L 94 L 95 06/10/18 15:40 06/10/18 16:00 06/10/18 20:00 Temperature 98.2 F 98.5 F 96.1 F L Pulse Rate 61 57 L 56 L Respiratory Rate 16 20 16 Blood Pressure 119/67 113/62 120/66 Pulse Oximetry 97 96 98 06/11/18 00:00 06/11/18 08:00 Temperature 97.6 F 96.2 F L Pulse Rate 53 L 50 L Respiratory Rate 16 16 Blood Pressure 118/71 131/69 Pulse Oximetry 96 99 Intake & Output 06/10/18 06/11/18 06/11/18 18:59 06:59 18:59 Intake Total 3282 / 3282 2049 50 / 50 Output Total 525 / 525 Balance 2757 / 2757 2049 50 / 50 Weight 86.7 kg Intake: IV 1882 / 1882 1050 / 1050 50 / 50 D5W/NS + KCL 20 mEq Inj 1,000 282 / 282 ML @ 100 mls/hr IV.CONT .Q10H IZAIAH Rx#:[id number] NS Inj 1,000 ML @ 100 mls/hr IV 550 / 550 1000 / 1000 .CONT .Q10H IZAIAH Rx#:[id number] LR 1000 mL Inj 1,000 ML @ 30 900 / 900 0 / 0 mls/hr IV.SIG .Q24H IZAIAH Rx#: [id number] Zosyn 3.375 GM Premix 50 ML @ 150 / 150 50 / 50 50 / 50 100 mls/hr IV.SIG Q6H IZAIAH Rx#: [id number] Oral 200 / 200 1000 / 1000 Anesthesia Amount 900 / 900 Other 300 / 300 Output: Urine 500 / 500 Estimated Blood Loss 25 / 25 Other: # Voids 3 Date of Last Bowel Movement 06/09/18 Results - Labs CBC & Chem 7: 06/11/18 06:20 06/11/18 06:20 Laboratory Results - last 24 hr 06/10/18 06/11/18 06/11/18 09:17 06:20 06:20 CBC w Diff Auto diff final WBC 11.6 H RBC 4.56 Hgb 12.1 Hct 36.7 MCV 80.4 MCH 26.5 L MCHC 33.0 RDW 13.7 Plt Count 234 MPV 8.1 Neut % (Auto) 90.3 H Lymph % (Auto) 6.7 L [place] % (Auto) 2.8 Eos % (Auto) 0.1 Baso % (Auto) 0.1 Neut # (Auto) 10.5 H Lymph # (Auto) 0.8 L [place] # (Auto) 0.3 Eos # (Auto) 0.0 Baso # (Auto) 0.0 WBC Differential . Differential Comment . PT 10.0 INR 1.0 Sodium 141 Potassium 4.0 Chloride 106 Carbon Dioxide 25.2 Anion Gap 10 BUN 8 Creatinine 0.90 Estimated GFR 76 L Random Glucose 126 H Calcium 8.2 L Total Bilirubin 0.4 AST 106 H ALT 182 H Alkaline Phosphatase 147 H Total Protein 6.7 Albumin 3.2 L - Procedures Lap nickie Assessment and Plan - Assessment (1) Abdominal pain Code(s): R10.9 - Unspecified abdominal pain Status: Acute (2) Cholecystitis Code(s): K81.9 - Cholecystitis, unspecified Status: Acute - Plan 27-year-old female admitted secondary to acute cholecystitis Acute cholecystitis Status post cholecystectomy Surgeons following Continue pain management Continue IV hydration Resume diet once patient is more alert and has bowel sounds Possible discharge tomorrow DVT prophylaxis SCDs (1) Abdominal pain Qualifiers: Abdominal location: epigastric Qualified Code(s): R10.13 - Epigastric pain
--- NOTE | 2018-06-11 09:35 | P.PN ---
Subjective Interval history: Follow-up left cholecystectomy. States she is doing okay improved nausea. Tolerable surgical pain. Tolerated diet. History of gestational diabetes fasting glucose of 106 today. Also advised regarding abnormal liver function tests occasional alcohol use. Awaiting return call from surgery to discuss abnormal liver function tests and slightly elevated white count before discharge Physical Exam Vital signs: Vital Signs 06/10/18 12:00 06/10/18 12:28 06/10/18 14:30 Temperature 97.0 F L 97.8 F 98.8 F Pulse Rate 55 L 56 L 78 Respiratory Rate 20 16 16 Blood Pressure 118/65 118/72 140/79 Pulse Oximetry 95 97 99 06/10/18 14:45 06/10/18 15:00 06/10/18 15:15 Temperature Pulse Rate 72 60 57 L Respiratory Rate 16 16 14 Blood Pressure 125/81 127/76 123/73 Pulse Oximetry 94 L 94 L 95 06/10/18 15:40 06/10/18 16:00 06/10/18 20:00 Temperature 98.2 F 98.5 F 96.1 F L Pulse Rate 61 57 L 56 L Respiratory Rate 16 20 16 Blood Pressure 119/67 113/62 120/66 Pulse Oximetry 97 96 98 06/11/18 00:00 06/11/18 08:00 Temperature 97.6 F 96.2 F L Pulse Rate 53 L 50 L Respiratory Rate 16 16 Blood Pressure 118/71 131/69 Pulse Oximetry 96 99 Intake & Output 06/10/18 06/11/18 06/11/18 18:59 06:59 18:59 Intake Total 3282 / 3282 2049 50 / 50 Output Total 525 / 525 Balance 2757 / 2757 2049 50 / 50 Weight 86.7 kg Intake: IV 1882 / 1882 1050 / 1050 50 / 50 D5W/NS + KCL 20 mEq Inj 1,000 282 / 282 ML @ 100 mls/hr IV.CONT .Q10H IZAIAH Rx#:[id number] NS Inj 1,000 ML @ 100 mls/hr IV 550 / 550 1000 / 1000 .CONT .Q10H IZAIAH Rx#:[id number] LR 1000 mL Inj 1,000 ML @ 30 900 / 900 0 / 0 mls/hr IV.SIG .Q24H IZAIAH Rx#: [id number] Zosyn 3.375 GM Premix 50 ML @ 150 / 150 50 / 50 50 / 50 100 mls/hr IV.SIG Q6H IZAIAH Rx#: [id number] Oral 200 / 200 1000 / 1000 Anesthesia Amount 900 / 900 Other 300 / 300 Output: Urine 500 / 500 Estimated Blood Loss 25 / 25 Other: # Voids 3 Date of Last Bowel Movement 06/09/18 Narrative: GENERAL: Well-developed, well-nourished in no distress SKIN: Warm and dry. No jaundice CARDIOVASCULAR: Regular rate and rhythm. RESPIRATORY: No accessory muscle use. Clear to auscultation. Breath sounds equal bilaterally. GASTROINTESTINAL: Abdomen soft, slightly tender over operative site, nondistended. No strips in place MUSCULOSKELETAL: Extremities without clubbing, cyanosis, or edema. No obvious deformities. NEUROLOGICAL: Awake and alert. No obvious cranial nerve deficits. Motor grossly within normal limits. Five out of 5 muscle strength in the arms and legs. Normal speech. PSYCHIATRIC: Appropriate mood and affect; insight and judgment normal. Results - Labs CBC & Chem 7: 06/11/18 06:20 06/11/18 06:20 Laboratory Results - last 24 hr 06/10/18 06/11/18 06/11/18 09:17 06:20 06:20 CBC w Diff Auto diff final WBC 11.6 H RBC 4.56 Hgb 12.1 Hct 36.7 MCV 80.4 MCH 26.5 L MCHC 33.0 RDW 13.7 Plt Count 234 MPV 8.1 Neut % (Auto) 90.3 H Lymph % (Auto) 6.7 L Hutchinson % (Auto) 2.8 Eos % (Auto) 0.1 Baso % (Auto) 0.1 Neut # (Auto) 10.5 H Lymph # (Auto) 0.8 L Hutchinson # (Auto) 0.3 Eos # (Auto) 0.0 Baso # (Auto) 0.0 WBC Differential . Differential Comment . PT 10.0 INR 1.0 Sodium 141 Potassium 4.0 Chloride 106 Carbon Dioxide 25.2 Anion Gap 10 BUN 8 Creatinine 0.90 Estimated GFR 76 L Random Glucose 126 H Calcium 8.2 L Total Bilirubin 0.4 AST 106 H ALT 182 H Alkaline Phosphatase 147 H Total Protein 6.7 Albumin 3.2 L - Imaging ITS Impressions Abdomen/Pelvis CT 06/10/18 04:15 CONCLUSION: 1. Moderate gallbladder distention, cholelithiasis and trace pericholecystic fluid. Cannot exclude developing acute cholecystitis in the appropriate clinical setting. 2. Normal appendix. - Procedures Laparoscopic cholecystectomy Assessment and Plan - Assessment (1) Abdominal pain Code(s): R10.9 - Unspecified abdominal pain Status: Acute (2) Cholecystitis Code(s): K81.9 - Cholecystitis, unspecified Status: Acute - Plan 27-year-old female admitted secondary to acute cholecystitis Acute cholecystitis Status post cholecystectomy Clinically stable tolerating diet surgeons following Continue pain management counseled regarding narcotics Cleared for discharge by general surgery Elevated AST and ALT which was normal prior to surgery. CT of the abdomen pelvis showed no liver disease. Occasional alcohol use. Will discuss with general surgery. Outpatient follow-up repeat CMP in 1 week Mild leukocytosis likely stress reaction. No fever. Patient still on Zosyn Mild hyperglycemia. History of gestational diabetes, needs outpatient follow-up DVT prophylaxis SCDs Discharge Planning: Discharge patient to home Condition on discharge: Improved Regular Diet as tolerated Ad [place] activity no driving Rx written: General surgery prescribed Zofran and [place] which I will discontinue because of transaminitis. Will order oxycodone. E forcse queried Follow-up with primary care physician and general surgery (1) Abdominal pain Qualifiers: Abdominal location: epigastric Qualified Code(s): R10.13 - Epigastric pain
[2018-06-11 12:01] VITALS: RESP 17
== END 2018-06-11 13:02 | disposition home or self-care (01) ==
LOC: PHED 01:24 → PHEDA 05:53 → INTOOBSV 05:53 → PHEDA 06:43 → PH3 06:44
PROVIDERS: ADMIT Internal Medicine; ATTEND Internal Medicine